=== PATIENT | female | born 1955 | race Caucasian/White ===

== ENCOUNTER 2016-10-18 18:29 | Emergency (ER) | payer BC ==
[~2016-10-18] VITALS: Ht 165.1 cm; Wt 66.2 kg
--- NOTE | 2016-10-18 18:49 | NUR ---
PT RERSTING, A/O X3, MONITOR SHOWS NSR, PO2=98%, ARRIVED WITH 20G SALINE LOCK TO LEFT HAND. MD AT THE BEDSIDE.
[2016-10-18] MEDS ORDERED: LOSA50TA3 PO (18:52)
[2016-10-18] MEDS ORDERED: SPIR25TA4 PO (18:52)
[2016-10-18] MEDS ORDERED: ASPI81TA44 PO (18:52)
[2016-10-18] MEDS ORDERED: CARV25TA2 PO (18:52)
[2016-10-18] MEDS ORDERED: MELA3TAB PO (18:53)
[2016-10-18] MEDS ORDERED: ESCI10TA PO (18:53)
[2016-10-18] MEDS ORDERED: OMEP40CA37 PO (18:53)
[2016-10-18] MEDS ORDERED: SUCR1ORA PO (18:53)
[2016-10-18] MEDS ORDERED: VITA1CAP PO (18:53)
[2016-10-18] MEDS ORDERED: LORA1TAB PO (18:53)
[2016-10-18] MEDS ORDERED: LEVE500T9 PO (18:53)
--- NOTE | 2016-10-18 18:53 | NUR ---
PT STATED THAT HER STOOL WAS THE CHARCOAL THAT SHE HAD DRANK.
[2016-10-18] MEDS ORDERED: LORAZEPAM 0.5 MG TABLET PO ONE (19:00)
--- NOTE | 2016-10-18 19:07 | NUR ---
[facility] REPORT TO OREN ABARCA
[2016-10-18] MEDS ORDERED: LORAZEPAM 1 MG TABLET ONE (19:13)
[2016-10-18 19:22] LABS: CREATININE 1.4 mg/dL (0.6-1.3); POTASSIUM 4.3 mmol/L (3.5-5.1)
--- NOTE | 2016-10-18 19:47 | NUR ---
Patient discharged to home in stable conditon WITH TAKING PATIENT HOME. Written and verbal after care instructions given. Patient verbalizes understanding of instructions. PLACED ON WHEELCHAIR TO BE D/C'ED TO PRIVATE VEHICLE BY STAFF MEMBER
[2016-10-18 19:50] VITALS: BP 100/60
== END 2016-10-18 19:53 | disposition home or self-care (01) ==
LOC: ER 18:30
DX: G40.909 Epilepsy, unspecified, not intractable, without status epilepticus (principal); I10 Essential (primary) hypertension; F41.9 Anxiety disorder, unspecified; F32.9 Major depressive disorder, single episode, unspecified; K21.9 Gastro-esophageal reflux disease without esophagitis; J44.9 Chronic obstructive pulmonary disease, unspecified; Z79.82 Long term (current) use of aspirin
CPT/HCPCS: 36415; A4663